=== PATIENT | male | born 1960 | race African-American/Black ===

== ENCOUNTER 2017-05-31 06:55 | Day surgery (SDC) | payer MEDICARE ==
[~2017-05-31] VITALS: Ht 170.2 cm; Wt 87.1 kg
--- NOTE | ~2017-05-31 | OP ---
PATIENT NAME: ZAHEER TAM MEDICAL RECORD: [id number] :60 LOCATION:D.OPS ADMISSION DATE: SURGEON: LIBBY CRAWFORD MD DATE OF OPERATION: 05/31/2017 REFERRING PHYSICIAN: Dr. Francis Tam. 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 OPERATION PERFORMED: Left upper extremity brachiocephalic AV fistulogram and balloon angioplasty of the stenotic cephalic arch and drug-coated balloon treatment of the arch with a 9 mm x 60 mm Lutonix drug-coated balloon. SURGEON: Libby Crawford MD ANESTHESIA: General with LMA per PROOF CLERK. PREOPERATIVE NOTE: Mr. Tam is a 56-year-old -[place] male with end-stage renal disease on chronic hemodialysis with a left brachiocephalic AV fistula. He has had a problem with recurring severe left cephalic arch stenosis. He is brought to the hospital today with plans to perform an angiogram and if his stenosis is recurrent as I believe it is, we will perform balloon angioplasty and possibly a drug-coated balloon therapy if not stenting. On physical examination, the patient's left arm AV fistula is hyperpulsatile and palpable easily up into the deltopectoral groove consistent with some outflow stenosis. PROCEDURE IN DETAIL: Under anesthesia in supine position, the patient was placed in supine position and prepped and draped in a sterile manner. The fistula was accessed with micropuncture technique and this led up to placement of a 7-Nepali introducer. I used a 0.035 Glidewire then to cross the central vasculature to the right atrium. Contrast injection demonstrated 2 areas of insignificant stenosis in the proximal cephalic vein and a 1-inch long segment of the most proximal cephalic arch with a 90% stenosis. This was right at the confluence with the axillary vein deform the subclavian vein. There was no other central vein stenosis identified with free flow of contrast into the right atrium. I dilated the cephalic arch with an 8 mm x 40 mm standard angioplasty balloon, which would not reach total effacement. I subsequently dilated the same lesion with an 8 x 40 Conquest high pressure balloon and achieved full effacement with insufflation to 25 atmospheres. I was held open for 30 seconds and then repeat angiography revealed a nice result with a 0% residual stenosis. I then treated the area with a 9 x 60 mm Lutonix balloon inflated over the site of stenosis and held and inflated at 15 atmospheres for 2 minutes, after which it was removed and repeat angiography revealed a satisfactory result. The hardware was removed and the puncture site closed with a [id number] 4-0 Prolene suture and hemostasis obtained with a brief period of direct pressure. The puncture site was dressed with Ultrafoam and Tegaderm with Cavilon skin prep. The patient was awakened and taken to the recovery room. OPERATIVE REPORT [id number] ZAHEER TAM The patient will be discharged from the outpatient department today to continue all of his same medications and routine dialysis schedule. He dialyzes I believe Saturday, , Saturday in [place]. I will ask that he be returned here in 6 weeks for another angiogram. At that time, hopefully his stenosis will not have recurred and it will not be necessary to treat this further for a while at least. If he does have early recurrence of the stenosis, I would plan to stent with a Viabahn stent. TRANSINT:[id number] Voice Confirmation ID: [id number] DOCUMENT ID: [id number] LIBBY CRAWFORD MD at 1058 CC: FRANCIS TAM [id number] DICTATION DATE: 05/31/17 1500 REPLANTING MACHINE CREWMAN: 05/31/17 1533 [facility] 05/31/17 [id number] [place] [address]
[~2017-05-31 06:55] MED LIST: COREG25 MG PO; COZAAR100 MG PO; GABAPENTIN100 MG PO; HYDRALAZINE HCL25 MG PO; LANTUS SOL100 UNIT/1; LANTUS SOL100 UNIT/1 SC; MIRALAX17 GM PO; NORVASC10 MG PO; SODIUM BICARBO650 MG PO; ZOCOR40 MG PO
[2017-05-31 07:46] LABS: BASOPHILS 0.1 % (0-2); EOSINOPHILS 0 % (0-7); HEMOGLOBIN 10.7 g/dL (13.5-17.5); IMMATURE GRANULOCYTES 0.5 % (0-5); LYMPHOCYTES 8.8 % (15-50); MCH 30.2 pg (26.0-34.0); MCHC 32.4 g/dL (31.0-37.0); MCV 93.2 fL (80.0-100.0); MONOCYTES 1.1 % (2-11); NEUTROPHILS 89.5 % (40-80); RBC 3.54 10x6/uL (4.20-6.10); RDW 14.8 % (11.5-14.5); WBC 8.7 10x3/uL (4.8-10.8)
[2017-05-31 07:56] LABS: ANION GAP 19.3 mmol/L (8-16); CALCIUM 9.9 mg/dL (8.5-10.1); CARBON DIOXIDE 23.1 mmol/L (21.0-32.0); CREATININE - SERUM 12.3 mg/dL (0.6-1.3); PLATELET COUNT 224 10x3/uL (130-400); POTASSIUM - SERUM 5.4 mmol/L (3.5-5.1)
[2017-05-31 08:09] LABS: APTT 31.1 SECONDS (22.8-39.4); INR 1.12 (0.85-1.17)
[2017-05-31] MEDS ORDERED: ZOFRAN8 MG PO (09:10)
[2017-05-31] MEDS ORDERED: ASPIRIN EC81 M1 PO (09:11)
[2017-05-31] MEDS ORDERED: PLAVIX75 MG PO (09:11)
[2017-05-31 09:22] VITALS: Ht 170.2 cm; Wt 87.1 kg
== END 2017-05-31 17:00 | disposition home or self-care (01) ==
LOC: D.OPS 06:55
PROVIDERS: Surgery
DX: E11.22 Type 2 diabetes mellitus with diabetic chronic kidney disease (principal); I12.0 Hypertensive chronic kidney disease with stage 5 chronic kidney disease or end stage renal disease; N18.6 End stage renal disease; Z99.2 Dependence on renal dialysis; K21.9 Gastro-esophageal reflux disease without esophagitis; Z01.812 Encounter for preprocedural laboratory examination